=== PATIENT | female | born 1950 | race Caucasian/White ===

== ENCOUNTER 2025-02-10 12:48 | Inpatient (IN) | payer MEDICARE ==
[2025-02-10] MEDS: Sodium Chloride 0.9% 10 ML Syringe FLUSH PRN (13:48)
[2025-02-10 13:49] LABS: BASOPHILS ABSOLUTE AUTO 0.1 x10-3/uL (0.0-0.1); BASOPHILS PERCENT AUTO 1.0 % (0.2-1.5); EOSINOPHILS ABSOLUTE AUTO 0.1 x10-3/uL (0.0-0.8); EOSINOPHILS PERCENT AUTO 1.0 % (0.6-8.1); LYMPHOCYTES ABSOLUTE AUTO 1.4 x10-3/uL (1.0-4.4); LYMPHOCYTES PERCENT AUTO 15.8 % (18.4-52.1); MEAN PLATELET VOLUME 7.7 fL (7.1-12.4); MONOCYTES ABSOLUTE AUTO 0.5 x10-3/uL (0.3-1.0); MONOCYTES PERCENT AUTO 6.2 % (4.4-15.7); NEUTROPHILS ABSOLUTE AUTO 6.7 x10-3/uL (1.5-6.3); NEUTROPHILS PERCENT AUTO 76.0 % (30.8-76.2); PLATELET COUNT,PLT 350 x10(3)uL (151-488); RED BLOOD CELL COUNT 2.44 x10(6)uL (3.60-5.20); RED CELL DISTRIBUTION WIDTH 18.1 % (12.3-16.5); WHITE BLOOD CELL COUNT,WBC 8.9 x10-3/uL (3.0-10.3)
[2025-02-10 13:53] LABS: BLOOD UREA NITROGEN,BUN 31 mg/dL (7-18); CARBON DIOXIDE,CO2 24 mmol/L (21-32); CHLORIDE,CL 108 mmol/L (100-110); CREATININE 0.8 mg/dL (0.55-1.02); EST CRCL DRUG DOSING (CG) 46.55 mL/min; ESTIMATED GFR 77 mL/min (>60); GLUCOSE RANDOM 101 mg/dL (80-116); POTASSIUM,K 4.0 mmol/L (3.5-5.3); SODIUM,NA 141 mmol/L (135-145)
[2025-02-10 13:54] LABS: INR 1.0 (1.00-1.24)
[2025-02-10 13:58] LABS: A/G RATIO 1.2; ALANINE AMINOTRANSFERASE,ALT 19 U/L (12-36); ASPARTATE AMNIOTRANSFERASE,AST 15 IU/L (5-25); BILIRUBIN TOTAL 0.3 mg/dL (0.1-1.3); PROTEIN TOTAL,TP 6.2 g/dL (6.0-8.0)
[2025-02-10 15:23] LABS: GLUCOSE,URINE NORMAL (NORMAL); OCCULT BLOOD,URINE NEGATIVE (NEGATIVE)
[2025-02-10 15:31] LABS: APPEARANCE,URINE CLOUDY (CLEAR); SQUAMOUS EPITHELIAL CELLS,UR FEW (NS,R,O)
[2025-02-10] MEDS ORDERED: Naloxone 0.4 MG/ML SDV IVPUSH PRN (15:49)
[2025-02-10] MEDS: fentaNYL 100 MCG/2 ML SDV IVPUSH ONE (16:58)
[2025-02-10 23:19] LABS: PLATELET COUNT,PLT 307.0 x10(3)uL (151-488); RED BLOOD CELL COUNT 3.28 x10(6)uL (3.60-5.20); RED CELL DISTRIBUTION WIDTH 23.1 % (12.3-16.5); WHITE BLOOD CELL COUNT,WBC 7.6 x10-3/uL (3.0-10.3)
[2025-02-11 06:38] LABS: BASOPHILS ABSOLUTE AUTO 0.1 x10-3/uL (0.0-0.1); BASOPHILS PERCENT AUTO 1.5 % (0.2-1.5); EOSINOPHILS ABSOLUTE AUTO 0.3 x10-3/uL (0.0-0.8); EOSINOPHILS PERCENT AUTO 4.6 % (0.6-8.1); LYMPHOCYTES ABSOLUTE AUTO 1.9 x10-3/uL (1.0-4.4); LYMPHOCYTES PERCENT AUTO 25.4 % (18.4-52.1); MEAN PLATELET VOLUME 7.8 fL (7.1-12.4); MONOCYTES ABSOLUTE AUTO 0.7 x10-3/uL (0.3-1.0); MONOCYTES PERCENT AUTO 9.5 % (4.4-15.7); NEUTROPHILS ABSOLUTE AUTO 4.4 x10-3/uL (1.5-6.3); NEUTROPHILS PERCENT AUTO 59.0 % (30.8-76.2); PLATELET COUNT,PLT 337 x10(3)uL (151-488); RED CELL DISTRIBUTION WIDTH 23.0 % (12.3-16.5); WHITE BLOOD CELL COUNT,WBC 7.4 x10-3/uL (3.0-10.3)
[2025-02-11 06:45] LABS: A/G RATIO 1.0; ALANINE AMINOTRANSFERASE,ALT 22 U/L (12-36); ASPARTATE AMNIOTRANSFERASE,AST 20 IU/L (5-25); BILIRUBIN TOTAL 0.6 mg/dL (0.1-1.3); BLOOD UREA NITROGEN,BUN 19 mg/dL (7-18); CARBON DIOXIDE,CO2 24 mmol/L (21-32); CHLORIDE,CL 109 mmol/L (100-110); CREATININE 0.7 mg/dL (0.55-1.02); EST CRCL DRUG DOSING (CG) 53.21 mL/min; ESTIMATED GFR 91 mL/min (>60); GLUCOSE RANDOM 91 mg/dL (80-116); POTASSIUM,K 3.8 mmol/L (3.5-5.3); PROTEIN TOTAL,TP 5.9 g/dL (6.0-8.0); SODIUM,NA 141 mmol/L (135-145)
[2025-02-11 06:52] LABS: RED BLOOD CELL COUNT 3.30 x10(6)uL (3.60-5.20)
[2025-02-11] MEDS: Iopamidol 755 Mg/ML 100 ML Bottle IV SCH (19:25)
[2025-02-12 05:53] LABS: BASOPHILS ABSOLUTE AUTO 0.1 x10-3/uL (0.0-0.1); BASOPHILS PERCENT AUTO 1.4 % (0.2-1.5); EOSINOPHILS ABSOLUTE AUTO 0.3 x10-3/uL (0.0-0.8); EOSINOPHILS PERCENT AUTO 5.6 % (0.6-8.1); LYMPHOCYTES ABSOLUTE AUTO 1.9 x10-3/uL (1.0-4.4); LYMPHOCYTES PERCENT AUTO 31.1 % (18.4-52.1); MEAN PLATELET VOLUME 7.5 fL (7.1-12.4); MONOCYTES ABSOLUTE AUTO 0.6 x10-3/uL (0.3-1.0); MONOCYTES PERCENT AUTO 10.5 % (4.4-15.7); NEUTROPHILS ABSOLUTE AUTO 3.1 x10-3/uL (1.5-6.3); NEUTROPHILS PERCENT AUTO 51.4 % (30.8-76.2); PLATELET COUNT,PLT 329 x10(3)uL (151-488); RED CELL DISTRIBUTION WIDTH 24.0 % (12.3-16.5); WHITE BLOOD CELL COUNT,WBC 6.1 x10-3/uL (3.0-10.3)
[2025-02-12 05:59] LABS: BLOOD UREA NITROGEN,BUN 10 mg/dL (7-18); CARBON DIOXIDE,CO2 26 mmol/L (21-32); CHLORIDE,CL 107 mmol/L (100-110); CREATININE 0.7 mg/dL (0.55-1.02); EST CRCL DRUG DOSING (CG) 53.21 mL/min; ESTIMATED GFR 91 mL/min (>60); GLUCOSE RANDOM 95 mg/dL (80-116); POTASSIUM,K 3.7 mmol/L (3.5-5.3); SODIUM,NA 142 mmol/L (135-145)
[2025-02-12 06:03] LABS: RED BLOOD CELL COUNT 3.37 x10(6)uL (3.60-5.20)
[2025-02-12] MEDS: Lactated Ringers 1,000 ML IV SCH (08:57)
[2025-02-12] MEDS ORDERED: Propofol 200 MG/20 ML SDV IV ONE (14:19)
[2025-02-12] MEDS ORDERED: Pantoprazole 20 MG Tab, Delayed Release PO SCH (17:30)
== END 2025-02-12 14:20 | disposition home or self-care (01) | DRG 378 ==
LOC: FB.ED 12:48 → FB.MS 16:13
PROVIDERS: ADMIT Family Medicine; ATTEND Internal Medicine
PROC: 30233N1 Transfusion of Nonautologous Red Blood Cells into Peripheral Vein, Percutaneous Approach (ICD-10-PCS; principal; 2025-02-10)
PROC: 0DJ08ZZ Inspection of Upper Intestinal Tract, Via Natural or Artificial Opening Endoscopic (ICD-10-PCS; 2025-02-10)
DX: K92.2 Gastrointestinal hemorrhage, unspecified (principal); D62 Acute posthemorrhagic anemia; K92.1 Melena; N39.0 Urinary tract infection, site not specified; K44.9 Diaphragmatic hernia without obstruction or gangrene; K21.9 Gastro-esophageal reflux disease without esophagitis; F41.9 Anxiety disorder, unspecified; F32.A Depression, unspecified; K20.90 Esophagitis, unspecified without bleeding; E03.9 Hypothyroidism, unspecified; E61.1 Iron deficiency; Z85.3 Personal history of malignant neoplasm of breast; Z79.899 Other long term (current) drug therapy; Z90.49 Acquired absence of other specified parts of digestive tract; Z98.890 Other specified postprocedural states; Z87.891 Personal history of nicotine dependence
CPT/HCPCS: 00731; 36415; 36430; 74177; 80048; 80053; 81001; 82272; 85014; 85018; 85025; 85027; 85610; 86850; 86900; 86901; 86920; 86922; 87040; 87086; 87088; 87186; 87426-QW; 88305; 88342; 94150; 96374; 97165-GO; 99223; 99232; 99238; 99283; 99285-25; A9270-GY; J0650; J0696; J2470; J2704; J7030; J7120; P9016; Q9967